=== PATIENT | male | born 1995 | race Caucasian/White ===

== ENCOUNTER 2017-01-28 13:34 | Emergency (ER) | payer BC ==
[2017-01-28 13:54] VITALS: BP 126/75
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
== END 2017-01-28 14:49 | disposition home or self-care (01) ==
LOC: UCCORT 13:34
DX: S60.221A Contusion of right hand, initial encounter (principal); S63.91XA Sprain of unspecified part of right wrist and hand, initial encounter; W51.XXXA Accidental striking against or bumped into by another person, initial encounter; Y93.9 Activity, unspecified; Y92.9 Unspecified place or not applicable
CPT/HCPCS: 99211; G0463

== ENCOUNTER 2017-04-09 20:06 | Emergency (ER) | payer OTHER ==
[2017-04-09 20:31] VITALS: BP 122/67
--- NOTE | 2017-04-09 20:41 | UC ---
Skin Complaint HPI - HPI Summary HPI Summary: Patient presents to with CC of rash to the inside of the left leg x 5 days. Denies known tick bite or allergic reaction. Denies ARGUETA, neuro sxs, body aches, or muscle or joint pains. Otherwise healthy and takes no medications. Has never been dx with Lyme before. Area is slightly pruritic with mild amount of pain on palpation and does not radiate. - History of Current Complaint Chief Complaint: UCSkin Time Seen by Provider: 04/09/17 20:11 Stated Complaint: TICK BITE Hx Obtained From: Patient Onset/Duration: Gradual Onset Skin Exposure Onset/Duration: Days Ago Timing: Constant Onset Severity: Mild Current Severity: Mild Pain Intensity: 2 Pain Scale Used: 0-10 Numeric Location: Discrete - left inner thigh Character: Pruritus, Pain, Redness Aggravating: Nothing Alleviating: Nothing Associated Signs & Symptoms: Positive: Negative Related History: Possible Reaction to: Insect - Allergy/Home Medications Allergies/Adverse Reactions: Allergies Allergy/AdvReac Type Severity Reaction Status Date / Time No Known Allergies Allergy Verified 04/09/17 20:11 Review of Systems Constitutional: Negative Skin: Rash Eyes: Negative ENT: Negative Respiratory: Negative Cardiovascular: Negative Neurovascular: Negative Musculoskeletal: Negative Neurological: Negative Psychological: Negative All Other Systems Reviewed And Are Negative: Yes PMH/Surg Hx/FS Hx/Imm Hx Previously Healthy: Yes - Surgical History Surgical History: None - Family History Known Family History: Positive: None - Social History Occupation: Employed Full-time Lives: With Family Alcohol Use: None Substance Use Type: None Smoking Status (MU): Never Smoked Tobacco - Immunization History Most Recent Influenza Vaccination: NONE 2015 Most Recent Tetanus Shot: UTD Most Recent Pneumonia Vaccination: N/A Vaccination Up to Date: Yes Physical Exam Triage Information Reviewed: Yes Appearance: Well-Appearing, No Pain Distress, Well-Nourished Vital Signs: Initial Vital Signs Temp 98.5 F 04/09/17 20:11 Pulse 56 04/09/17 20:11 Resp 16 04/09/17 20:11 BP 122/67 04/09/17 20:11 Pulse Ox 99 04/09/17 20:11 Vital Signs Reviewed: Yes Eye Exam: Normal Eyes: Positive: Conjunctiva Clear Neck exam: Normal Neck: Positive: Supple, Nontender, No Lymphadenopathy Respiratory: Positive: Chest non-tender Cardiovascular Exam: Normal Musculoskeletal Exam: Normal Musculoskeletal: Positive: Strength Intact Neurological: Positive: Alert, Muscle Tone Normal Psychological: Positive: Normal Response To Family, Age Appropriate Behavior Skin Exam: Normal Skin: Positive: Other - Area measuring 5X5cm area to the inner left thigh with bullseye rash Course/Dx - Course Course Of Treatment: Area measuring 5X5cm area to the inner left thigh with bullseye rash. Denies tick bite. Based on ISDA guidelines and UTD, will treat with 2 weeks doxycyline for EM rash - target lesion. Doxycycline given as rx. - Differential Diagnoses - Skin Complaint Differential Diagnoses: Allergic Reaction, Poison [place], Poison [place], Tick Born Illness - Diagnoses Provider Diagnoses: Lyme Rash Discharge - Discharge Plan Condition: Stable Disposition: HOME Prescriptions: DOXYcycline CAP(*) [DOXYcycline 100MG CAP(*)] 100 mg PO DAILY #28 cap Patient Education Materials: Lyme Disease (ED), Tick Bite (ED) Referrals: Liliana Leal PA [Physician [employer]] - Additional Instructions: Follow up with PCP in 1 month Take Doxycycline twice daily for 14 days
== END 2017-04-09 20:50 | disposition home or self-care (01) ==
LOC: UCCORT 20:06
DX: A69.20 Lyme disease, unspecified (principal)
CPT/HCPCS: 99212; G0463

== ENCOUNTER 2018-12-25 11:22 | Emergency (ER) | payer BC, OTHER ==
[2018-12-25 11:54] VITALS: BP 125/65
--- NOTE | 2018-12-25 12:26 | UC ---
Skin Complaint HPI - HPI Summary HPI Summary: 23-year-old male presents with 3-4 day history of mildly pruritic rash to his left axilla. Denies fever, chills, pain, changes in soaps, detergents, deodorants, diarrhea, or contact with environmental irritants. - History of Current Complaint Chief Complaint: UCSkin Time Seen by Provider: 12/25/18 12:04 Stated Complaint: SKIN COMPLAINT Hx Obtained From: Patient Pain Intensity: 0 - Allergy/Home Medications Allergies/Adverse Reactions: Allergies Allergy/AdvReac Type Severity Reaction Status Date / Time No Known Allergies Allergy Verified 12/25/18 11:51 PMH/Surg Hx/FS Hx/Imm Hx Previously Healthy: Yes - Denies significant PMH - Surgical History Surgical History: None - Family History Known Family History: Positive: None - Social History Occupation: Student Lives: Dormitory/Roommates Alcohol Use: Weekly Substance Use Type: None Smoking Status (MU): Never Smoked Tobacco - Immunization History Most Recent Influenza Vaccination: NONE 2015 Most Recent Tetanus Shot: UTD Most Recent Pneumonia Vaccination: N/A Vaccination Up to Date: Yes Review of Systems All Other Systems Reviewed And Are Negative: Yes Constitutional: Negative: Fever, Chills Skin: Positive: Rash Respiratory: Positive: Negative Cardiovascular: Positive: Negative Gastrointestinal: Positive: Negative Genitourinary: Positive: Negative Musculoskeletal: Positive: Negative Neurological: Positive: Negative Is Patient Immunocompromised?: No Physical Exam - Summary Physical Exam Summary: GENERAL APPEARANCE: Well developed, well nourished, alert and cooperative, and appears to be in no acute distress. CARDIAC: Normal S1 and S2. No S3, S4 or murmurs. Rhythm is regular. There is no peripheral edema, cyanosis or pallor. Extremities are warm and well perfused. Capillary refill is less than 2 seconds. Peripheral pulses intact. LUNGS: Clear to auscultation without rales, rhonchi, wheezing or diminished breath sounds. ABDOMEN: Positive bowel sounds. Soft, nondistended, nontender. No guarding or rebound. No masses or hepatosplenomegally. MUSKULOSKELETAL: ROM intact to all extremities. No joint erythema or tenderness. Normal muscular development. Normal gait. SKIN: Annular, erythematous, plaques with few pustules to the left axilla. No increased warmth or edema noted. Triage Information Reviewed: Yes Vital Signs: Initial Vital Signs Temp 98 F 12/25/18 11:50 Pulse 65 12/25/18 11:50 Resp 14 12/25/18 11:50 BP 125/65 12/25/18 11:50 Pulse Ox 100 12/25/18 11:50 Vital Signs Reviewed: Yes Course/Dx - Course Course Of Treatment: 23-year-old male presents with 3-4 day history of mildly pruritic rash to his left axilla. Denies fever, chills, pain, changes in soaps, detergents, deodorants, diarrhea, or contact with environmental irritants. Afebrile. Vital signs stable. Exam reveals a male in no acute distress with annular, erythematous, plaques with a few pustules to the left axilla without tenderness or edema, and otherwise unremarkable exam. Will treat for a tinea corpus with Lotrisone cream twice a day, good skin hygiene, and use of an absorbent powder. Patient is to follow-up here or at the [facility] in 5 days if symptoms do not improve or sooner if symptoms worsen. Anticipatory guidance and warning symptoms reviewed with patient. Verbalizes understanding and agrees with plan of care. - Differential Diagnoses - Skin Complaint Differential Diagnoses: Cellulitis, Contact Dermatitis, MRSA, Tinea - Diagnoses Provider Diagnosis: Tinea corporis Discharge - Sign-Out/Discharge Documenting (check all that apply): Patient Departure All imaging exams completed and their final reports reviewed: No Studies - Discharge Plan Condition: Stable Disposition: HOME Prescriptions: Clotrimazole/Betamethasone* [Lotrisone Cream*] 1 applic TOPICAL BID #1 tube Patient Education Materials: Tinea Corporis (ED) Referrals: No Primary Care Phys,NOPCP [Primary Care Provider] - Additional Instructions: Your rash appears to be a fungal infection. Use Lotrisone cream to the affected area twice a day until clear then continue for 2 more days. Be sure to keep the skin clean and pat dry. Use a absorbent powder such as corn starch after applying the cream to help absorb moisture. Return here or follow up at the [facility] in 5-7 days if no improvement, sooner if symptoms worsen. - Billing Disposition and Condition Condition: STABLE Disposition: Home - Attestation Statements Provider Attestation: Per institutional requirements, I have reviewed the chart, however, I was not consulted specifically or made aware of this patient by the midlevel provider. I did not personally evaluate, interact with , or disposition this patient.
== END 2018-12-25 12:35 | disposition home or self-care (01) ==
LOC: UCCORT 11:22
DX: B35.4 Tinea corporis (principal)
CPT/HCPCS: 99212; G0463

== ENCOUNTER 2019-06-28 13:30 | Emergency (ER) | payer BC ==
[2019-06-28 13:43] VITALS: BP 114/70
--- NOTE | 2019-06-28 14:00 | UC ---
Lower Extremity/Ankle HPI - HPI Summary HPI Summary: muscle/tendon in posterior left thigh while running this morning - History of Current Complaint Chief Complaint: UCLowerExtremity Stated Complaint: LT LEG INJURY Time Seen by Provider: 06/28/19 13:49 Hx Obtained From: Patient Onset/Duration: Sudden Onset, Lasting Hours Pain Intensity: 0 Pain Scale Used: 0-10 Numeric Aggravating Factor(s): Standing Alleviating Factor(s): OTC Meds Able to Bear Weight: Yes - Allergies/Home Medications Allergies/Adverse Reactions: Allergies Allergy/AdvReac Type Severity Reaction Status Date / Time No Known Allergies Allergy Verified 06/28/19 13:40 Home Medications: Home Medications Ibuprofen TAB* [Advil TAB*] 200 mg PO Q6H PRN 06/28/19 [History Confirmed ] PMH/Surg Hx/FS Hx/Imm Hx Previously Healthy: Yes - Surgical History Surgical History: None - Family History Known Family History: Positive: None - Social History Occupation: Student Lives: With Family Alcohol Use: Weekly Substance Use Type: None Smoking Status (MU): Never Smoked Tobacco - Immunization History Most Recent Influenza Vaccination: NONE 2015 Most Recent Tetanus Shot: UTD Most Recent Pneumonia Vaccination: N/A Vaccination Up to Date: Yes Review of Systems All Other Systems Reviewed And Are Negative: Yes Constitutional: Positive: Negative Skin: Positive: Negative Eyes: Positive: Negative ENT: Positive: Negative Respiratory: Positive: Negative Cardiovascular: Positive: Negative Gastrointestinal: Positive: Negative Genitourinary: Positive: Negative Motor: Positive: Negative Neurovascular: Positive: Negative Musculoskeletal: Positive: Myalgia - left posterior thigh Neurological: Positive: Negative Psychological: Positive: Negative Is Patient Immunocompromised?: No Physical Exam Triage Information Reviewed: Yes Appearance: Well-Appearing, No Pain Distress, Well-Nourished Vital Signs: Initial Vital Signs Temp 98.3 F 06/28/19 13:39 Pulse 82 06/28/19 13:39 Resp 16 06/28/19 13:39 BP 114/70 06/28/19 13:39 Pulse Ox 100 06/28/19 13:39 Vital Signs Reviewed: Yes Eye Exam: Normal Eyes: Positive: Conjunctiva Clear ENT Exam: Normal ENT: Positive: Normal ENT inspection, Hearing grossly normal. Negative: Trismus , Muffled voice, Hoarse voice Dental Exam: Normal Neck exam: Normal Neck: Positive: Supple, Nontender, No Lymphadenopathy Respiratory Exam: Normal Respiratory: Positive: Chest non-tender, No respiratory distress, No accessory muscle use Cardiovascular Exam: Normal Cardiovascular: Positive: RRR, Brisk Capillary Refill Musculoskeletal Exam: Normal Musculoskeletal: Positive: Strength Intact, ROM Intact, No Edema Neurological Exam: Normal Neurological: Positive: Alert, Muscle Tone Normal Psychological Exam: Normal Skin Exam: Normal Lower Extremity Course/Dx - Course Course Of Treatment: pablito wrap-patient refused crutches, ice, ibuprofen follow with sports medicine this week - Differential Dx/Diagnosis Provider Diagnosis: Muscle strain of left lower extremity Discharge ED - Sign-Out/Discharge Documenting (check all that apply): Patient Departure All imaging exams completed and their final reports reviewed: No Studies - Discharge Plan Condition: Stable Disposition: HOME Patient Education Materials: Ibuprofen (By mouth), Hamstring Injury (ED), Ice Pack Application (ED), Hamstring Exercises (ED) Referrals: Franchesca Mckenzie MD [Medical Doctor] - 2 Days (as for an appointment in [place] office) - Billing Disposition and Condition Condition: STABLE Disposition: Home
== END 2019-06-28 14:16 | disposition home or self-care (01) ==
LOC: UCCORT 13:30
DX: S86.912A Strain of unspecified muscle(s) and tendon(s) at lower leg level, left leg, initial encounter (principal); X50.0XXA Overexertion from strenuous movement or load, initial encounter; Y93.02 Activity, running; Y92.9 Unspecified place or not applicable
CPT/HCPCS: 99212; G0463